=== PATIENT | female | born 1955 ===

== ENCOUNTER 2025-05-17 15:36 | Outpatient (CLI) | payer MEDICARE, OTHER | END 2025-05-17 15:37 | disposition home or self-care (01) | LOC: BICMAMMO 15:36 | PROVIDERS: ATTEND Family Medicine | DX: Z12.31 Encounter for screening mammogram for malignant neoplasm of breast (principal); R92.8 Other abnormal and inconclusive findings on diagnostic imaging of breast | CPT/HCPCS: 77063; 77067 ==